=== PATIENT | female | born 1995 | race Caucasian/White ===

== ENCOUNTER 2021-10-08 17:17 | Emergency (ER) | payer OTHER ==
[~2021-10-08] VITALS: Ht 149.9 cm; Wt 74.8 kg
[2021-10-08 17:56] LABS: URINE BILIRUBIN NEGATIVE (Negative); URINE BLOOD 1+ (Negative); URINE COLOR YELLOW; URINE GLUCOSE-RANDOM* NEGATIVE (Negative); URINE KETONES NEGATIVE (Negative); URINE LEUKOCYTES-REFLEX TRACE (Negative); URINE NITRITE-REFLEX POSITIVE (Negative); URINE PROTEIN (DIPSTICK) NEGATIVE (Negative); URINE SPECIFIC GRAVITY >= 1.030 (1.005-1.035); URINE UROBILINOGEN 0.2 E.U./dl (0.2-1.0)
[2021-10-08 17:57] LABS: URINE CLARITY HAZY
[2021-10-08 18:12] LABS: ABSOLUTE NEUTROPHILS 3.7 thou/uL (1.4-8.2); BASOPHILS 0.5 % (0.0-2.0); EOSINOPHILS 1.6 % (0.0-3.0); HEMATOCRIT 47.1 % (37.0-47.0); HEMOGLOBIN 15.6 gm/dL (12.0-15.0); LYMPHOCYTES 32.7 % (24.0-44.0); MCHC 33.1 g/dL (28.0-37.0); MCV 84.8 fL (80.0-100.0); MONOCYTES 6.8 % (1.0-8.0); PLATELET COUNT 232 thou/uL (150-400); POLYS 58.4 % (36.0-66.0); RBC 5.56 mil/uL (4.20-5.00); RDW 13.8 % (10.5-14.5); WBC 6.3 thou/uL (4.0-11.0)
[2021-10-08 18:15] LABS: BACTERIA-REFLEX >30 Many /HPF (None Seen); CASTS None Seen /LPF (None Seen); CRYSTALS None Seen /LPF (None Seen); SQUAMOUS 4-10 Moderate /LPF (0-3); URINE RBC 3-10 Few /HPF (NONE SEEN); URINE WBC-REFLEX 6-15 Few /HPF (0-5)
[2021-10-08 18:21] LABS: CALCIUM 8.9 mg/dL (8.5-10.1); CREATININE 0.7 mg/dL (0.6-1.0); POTASSIUM 3.9 mmol/L (3.5-5.1)
[2021-10-08 18:27] LABS: ALBUMIN 4.1 g/dL (3.4-5.0); TOTAL PROTEIN 8.2 g/dL (6.4-8.2)
[2021-10-08] MEDS ORDERED: OMEPRAZOLE40 MG PO (19:10)
[2021-10-08] MEDS ORDERED: CARAFATE 1 GM TA1 G1 PO (19:10)
[2021-10-08 19:16] VITALS: BP 120/80
--- NOTE | 2021-10-09 09:58 | EKG ---
[place] [address] [employer] [facility] [facility] [place] [employer] [address] ELECTROCARDIOGRAM REPORT Name: JOSE RODRÍGUEZ [facility] [id number] Admission: 10/08/21 Attend Phys: Discharge: 10/08/21 Date of : [birth year] Report #: [id number] [facility] ED Test Date: 2021-10-08 Test Time: 17:39:05 Pat Name: JOSE RODRÍGUEZ Department: Room: Gender: F Wrist Closer: delfino : 1995 Requested By: Alley Arellano Order Number: [id number] MD: Neo Dukes Measurements Intervals Holman Rate: 74 P: 20 [place]: 141 QRS: 27 QRSD: 79 T: 2 QT: 363 QTc: 403 Interpretive Statements Sinus rhythm Borderline T abnormalities, anterior leads Baseline wander in lead(s) II,aVF No previous ECG available for comparison Electronically Signed On 10-09-2021 9:58:18 [employer]CIAL [employer] ANALYST by Neo Dukes [email or web address] <ELECTRONICALLY SIGNED> By: Neo Dukes MD, [facility] 10/09/21 [id number] Neo Dukes MD, FACC /EPI
[2021-10-11] MEDS ORDERED: CEPHALEXIN500 MG PO (09:49)
== END 2021-10-08 19:16 | disposition home or self-care (01) ==
LOC: ER 17:17
PROVIDERS: Physician Assistant
DX: R11.2 Nausea with vomiting, unspecified (principal); R10.84 Generalized abdominal pain; K21.9 Gastro-esophageal reflux disease without esophagitis; Z90.49 Acquired absence of other specified parts of digestive tract; Z91.041 Radiographic dye allergy status